=== PATIENT | male | born 1960 | race African-American/Black ===

== ENCOUNTER 2022-10-30 05:43 | Observation (INO) ==
[2022-10-30] MEDS ORDERED: Buffered Lidocaine 1% SYRIN 1 ml INTRADERM ONE (06:00)
[2022-10-30] MEDS ORDERED: Lactated Ringers 1000 ml BAG 1,000 ML IV SCH ×2 (06:00→07:00)
[2022-10-30] MEDS ORDERED: ceFAZolin 2 GM in NS PREMIX 2 GM/100 ML BAG IVPB ONE (06:39)
[2022-10-30] MEDS ORDERED: Ondansetron ODT 4 mg TAB 4 MG TAB PO PRN (06:52)
[2022-10-30] MEDS ORDERED: Lactulose 30 ml UDC PO PRN (06:52)
[2022-10-30] MEDS ORDERED: Ondansetron 4 mg VIAL 2 MG/ML 2 ml VIAL IV PRN ×2 (06:52→08:44)
[2022-10-30] MEDS ORDERED: Magnesium Hydroxide LIQ 30 ML UDC PO PRN (06:52)
[2022-10-30] MEDS ORDERED: Morphine 2 MG/ML SYRINGE IV PRN (06:52)
[2022-10-30] MEDS ORDERED: Midazolam 2 mg/2 ml VIAL 1 mg/ml 2 ml VIAL (2 mg) ONE ×2 (07:09→07:47)
[2022-10-30] MEDS ORDERED: ROPIVACAINE 5 MG/ML 30 ML BTL (0.5%) ONE (07:09)
[2022-10-30] MEDS ORDERED: Acetaminophen IV 1 GM/100ML 1,000 MG/100 ML BAG IV ONE (08:12)
[2022-10-30] MEDS ORDERED: Dexamethasone IV 4 MG/ML VIAL 1 ml VIAL ONE (08:12)
[2022-10-30] MEDS ORDERED: Ondansetron 4 mg VIAL 2 MG/ML 2 ml VIAL ONE (08:12)
[2022-10-30] MEDS ORDERED: Naloxone 0.4 mg VIAL 0.4 mg/ml 1 ml VIAL IV PRN (08:44)
[2022-10-30] MEDS ORDERED: Magnesium Hydroxide LIQ 30 ML UDC PO SCH (09:00)
[2022-10-30] MEDS ORDERED: Vitamin THERAPEUTIC TAB PO SCH (09:00)
[2022-10-30] MEDS ORDERED: Phenylephrine 40 mcg/mL 10mL (400mcg) SYRINGE ONE (09:13)
[2022-10-30] MEDS ORDERED: Propofol 10 MG/ML 20 ML BTL ONE (09:19)
[2022-10-30] MEDS ORDERED: fentaNYL 100 mcg/2 ml 50 MCG/ML VIAL ONE ×2 (10:56→11:49)
[2022-10-30] MEDS: fentaNYL 100 mcg/2 ml 50 MCG/ML VIAL IV PRN ×6 (10:59→12:03)
[2022-10-30] MEDS ORDERED: HYDROmorphone 0.5 MG/0.5 ML SYRINGE IV SLOW PU PRN (11:09)
[2022-10-30] MEDS ORDERED: ceFAZolin 1 GM in Dextrose 1 GM/50 ML BAG IVPB SCH (16:00)
[2022-10-30 18:42] VITALS: BP 149/85
== END 2022-10-30 20:05 | disposition home or self-care (01) ==
LOC: SSU 05:43 → SDS 05:43 → EDSTATUS 14:15
PROVIDERS: ADMIT Orthopaedic Surgery Adult Reconstructive Orthopaedic Surgery; ATTEND Orthopaedic Surgery Adult Reconstructive Orthopaedic Surgery